=== PATIENT | female | born 2000 | race Caucasian/White ===

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

== ENCOUNTER → 2020-10-06 14:16 | Outpatient (CLI) | payer OTHER, SELFPAY | PROVIDERS: PCP Nurse Practitioner Family; Visit Provider Internal Medicine Adolescent Medicine | DX: Z20.822 Contact with and (suspected) exposure to COVID-19 (principal); U07.1 COVID-19; R05 Cough | CPT/HCPCS: U0003 ==

== ENCOUNTER 2021-05-25 20:02 | Emergency (ER) | payer OTHER, SELFPAY ==
[2021-05-25 20:02] VITALS: BP 141/80; PULSE 103; RESP 18; TEMP 36.9; O2SAT 97; BMI 43.9
[2021-05-25 20:18] VITALS: BP 141/80; PULSE 103; RESP 18; TEMP 36.9; O2SAT 97; BMI 42.5
--- NOTE | 2021-05-25 20:36 | HMH.EDUTC ---
[facility] – [place] Disposition Clinical Impression: Asthma exacerbation Qualifiers: Asthma severity: unspecified severity Asthma persistence: unspecified Qualified Code(s): J45.901 - Unspecified asthma with (acute) exacerbation Disposition: Home, Self-Care Condition on Discharge: Good Instructions: Asthma -- Adult, DI for Asthma -- Adult Additional Instructions: Drink plenty of fluids. Take tylenol or ibuprofen for pain or fever. Take the medications as directed. Follow up with your regular doctor. GO TO THE ER FOR ANY WORSENING SYMPTOMS Prescriptions: Fluticasone Propionate [Flovent Hfa 110mcg Inhaler] 1 puff INHALATION BID 30 Days #1 each Transmission Status: Received by [id number] methylPREDNISolone [Medrol] 4 mg PO DIRECTED 6 Days #21 packet Transmission Status: Received by [id number] Azithromycin [Z-Michael 250mg Tab*] 250 mg PO UD DOSE PK #6 tab Transmission Status: Received by [id number] Referrals: Sammie Escoto APRN [Primary Care Provider] - Forms: Work/School Release Time of Disposition: 20:51 Medical Decision Making - Medical Records Medical records reviewed: No: I reviewed the patient's medical records. - Franki Inquiry Pt receiving controlled substance: No Vital Signs: 05/25/21 20:02 05/25/21 20:18 05/25/21 21:00 Temperature 98.4 F 98.4 F 98.4 F Temperature Source Oral Oral Pulse Rate 103 H Pulse Rate [Right Radial] 103 H 103 H Respiratory Rate 18 18 18 Blood Pressure 141/80 H Blood Pressure [Left Arm] 141/80 H 141/80 H Blood Pressure Mean [Left Arm] 100 100 Blood Pressure Source [Left Arm] Automatic Cuff Blood Pressure Position [Left Arm] Sitting 02 Sat by Pulse Oximetry 97 97 Oxygen Delivery Method Room Air [facility] – [place] HPI - General Stated complaint: possible asthma attack Time Seen by Provider: 05/25/21 20:36 Mode of Arrival: Ambulatory Source of Information: Patient Limitations: No Limitations Description of Symptoms (Recalled from Triage Doc. by RN): pt c/o asthma flare up. she states she was having soa earlier but is feeling better. pt takes ventolin but is unsure if it has been helpig. pt used to take flovent, which worked well. she is out of flovent. HEENT Symptoms (Recalled from RN notes): No Resp Symptoms (Recalled from RN notes): No Skin Symptoms (Recalled from RN notes): No MS Symptoms (Recalled from RN notes): No Functional Status (Recalled from RN notes): na - History of Present Illness Provider Complaint: She states that for the past several days she has had worsening asthma symptoms. She has had more wheezing and a cough that she usually doesn't have. She denies any chest pain. She denies any fever or chills. She denies feeling bad other than her asthma symptoms. She is out of her steroid inhaler. She has been using her ventolin inhaler, but she does not feel like it's working very good for her with out the other inhaler. - Related Data Home Medications Medication Instructions Recorded Confirmed albuterol sulfate 90 mcg/actuation 2 puff INHALATION Q4-6H PRN 09/28/17 aerosol inhaler fluoxetine 10 mg capsule 30 mg PO DAILY cap 09/28/17 fluticasone propionate 110 1 puff INHALATION BID 09/28/17 mcg/actuation HFA aerosol inhaler bupropion HCl 150 mg 24 hr tablet, 150 mg PO DAILY 11/04/20 extended release buspirone 5 mg tablet 5 mg PO TID 11/04/20 etonogestrel 68 mg subdermal SUBDERMAL 11/04/20 implant Previous Rx's Medication Instructions Recorded Azithromycin [Z-Michael 250mg Tab*] 250 mg PO UD DOSE PK #6 tab 05/25/21 Fluticasone Propionate [Flovent 1 puff INHALATION BID 30 Days #1 05/25/21 Hfa 110mcg Inhaler] each methylPREDNISolone [Medrol] 4 mg PO DIRECTED 6 Days #21 05/25/21 packet Allergies Allergy/AdvReac Type Severity Reaction Status Date / Time hydroxyzine [HYDROXYZINE] Allergy Intermediate NA-NAUSEA/V Verified 11/04/20 14:18 OMITING - Worker's Comp Is this a Wor
[2021-05-25 21:00] VITALS: BP 141/80; PULSE 103; RESP 18; TEMP 36.9
== END 2021-05-25 21:01 | disposition home or self-care (01) ==
PROVIDERS: Emergency Provider Nurse Practitioner Family; PCP Nurse Practitioner Family
DX: J45.901 Unspecified asthma with (acute) exacerbation (principal); F33.1 Major depressive disorder, recurrent, moderate
CPT/HCPCS: 99202; C9803; G0463; U0003; U0005

== ENCOUNTER 2022-09-02 14:36 | Emergency (ER) | payer OTHER, SELFPAY ==
--- NOTE | 2022-09-02 14:36 | ECG_ITS ---
APPROVED REPORT Exam: Resting ECG HR:101 bpm ECG Measurements Heart Rate 101 AXES WY 132 P 63 QRSd 92 QRS 56 QT 351 T 28 QTc 409 Conclusion SINUS TACHYCARDIA NONSPECIFIC T-WAVE ABNORMALITY ABNORMAL RHYTHM ECG UNCONFIRMED REPORT Electronically signed by : Srikanth Warren MD 09/02/2022 18:35:22
[2022-09-02 14:38] VITALS: BP 143/83; PULSE 107; RESP 16; TEMP 36.7; O2SAT 96; BMI 45.1
--- NOTE | 2022-09-02 14:48 | XR_ITS ---
FINAL REPORT CLINICAL HISTORY: CHEST PAIN COMPARISON: 11/01/2016 FINDINGS: PA and lateral views of the chest were obtained. The cardiac and mediastinal silhouettes are within normal limits. The lungs are clear. There is no pleural effusion or pneumothorax. No acute osseous abnormality is identified. IMPRESSION: No radiographic evidence of acute cardiac or pulmonary disease. Reviewed, Interpreted and Dictated by Angela Ly MD Transcribed by Earnestine Viera Authenticated and [facility]
--- NOTE | 2022-09-02 14:48 | PC.NURSE ---
DR ROMERO AT BEDSIDE
[2022-09-02 15:11] LABS: Alanine Aminotransferase 29 U/L (12-78); Albumin Level 4.4 g/dl (3.5-5.0); Albumin/Globulin Ratio 1.3 (1.1-1.8); Alkaline Phosphatase 107 U/L (38-126); Aspartate Amino Transferase 35 U/L (14-36); Bilirubin,Total 0.6 mg/dl (0.2-1.3); Blood Urea Nitrogen 15 mg/dl (7-17); Calcium 9.2 mg/dl (8.4-10.2); Carbon Dioxide 26 mmol/L (22.0-30.0); Chloride 110 mmol/L (98-107); Creatinine Clearance Estimated 105 mL/min (50-200); Estimated Glomerular Filt Rate 106 ml/min (>60); GFR (African American) 128 ML/MIN (>60); Globulin 3.4 g/dL (1.3-3.2); Glucose 82 mg/dl (74-100); Sodium 142 mmol/L (136-145); Total Protein,Serum 7.8 g/dl (6.3-8.2)
--- NOTE | 2022-09-02 15:15 | HMH.EDCP ---
Discharge Plan Disposition Patient Disposition: Home, Self-Care Condition: Good Prescriptions Prescriptions: New ibuprofen 400 mg tablet 400 mg PO Q6H PRN (Reason: pain) Qty: 20 0RF omeprazole 20 mg capsule,delayed release(DR/EC) 20 mg PO DAILY Qty: 20 0RF No Action fluoxetine [Prozac] 10 mg capsule 30 mg PO DAILY albuterol sulfate [Ventolin HFA] 90 mcg/actuation HFA aerosol inhaler 2 puff INHALATION Q4-6H PRN fluticasone propionate [Flovent HFA] 110 mcg/actuation HFA aerosol inhaler 1 puff INHALATION BID Nexplanon 68 mg implant SUBDERMAL bupropion HCl 150 mg tablet extended release 24 hr 150 mg PO DAILY buspirone 5 mg tablet 5 mg PO TID fluticasone propionate 120 PUFFS HFA aerosol inhaler 1 puff INHALATION BID 30 Days Qty: 1 2RF azithromycin 250 MG tablet 250 mg PO UD DOSE PK Qty: 6 0RF Rx Instructions: Take two (2) tablets today, then one (1) tablet days #2 thru #5 methylprednisolone 4 MG tablets,dose pack 4 mg PO DIRECTED 6 Days Qty: 21 0RF Referrals Follow up/Referrals: Provider,Referral, MD [Primary Care Provider] - See instructions Activity Restrictions/Add. Instructions Additional Instructions/Restrictions: Avoid exertion. Follow-up with your primary care provider for consideration of outpatient cardiac stress testing. Return for worsening chest pain, shortness of air or other concerns. Clinical Impressions Clinical Impression: Acute costochondritis, GERD with esophagitis Stand Alone Forms Stand Alone Forms: Work/School Release Discharge ED Provider: Marcell Krishnamurthy Chest Pain HPI General Chief Complaint: Chest Pain Stated Complaint: CP Time Seen by Provider: 09/02/22 14:47 Mode of Arrival: Ambulatory Limitations: No Limitations Description of Symptoms (Recalled from ER Triage Doc. by RN): PT REPORTS CHEST PAIN X 2 MONTHS, INCREASED CHEST PRESSURE FOR A FEW WEEKS. PT DENIES SHORTNESS OF BREATH History of Present Illness HPI narrative: Patient presents complaining of 3-week history of intermittent chest discomfort. Presently she describes discomfort as moderate and denies exacerbating or alleviating factors. She denies associated shortness of breath, vomiting or diaphoresis. She denies recent fever or productive cough. She denies a history of heart disease or thromboembolic disease. She presently denies . Related Data Home Medications Medication Instructions Recorded Confirmed albuterol sulfate 90 mcg/actuation 2 puff inhalation Q4-6H PRN 09/28/17 aerosol inhaler (Ventolin HFA) fluoxetine 10 mg capsule (Prozac) 30 mg PO DAILY 09/28/17 fluticasone propionate 110 1 puff inhalation BID 09/28/17 mcg/actuation HFA aerosol inhaler (Flovent HFA) bupropion HCl 150 mg 24 hr tablet, 150 mg PO DAILY 11/04/20 extended release buspirone 5 mg tablet 5 mg PO TID 11/04/20 etonogestrel 68 mg subdermal subdermal 11/04/20 implant (Nexplanon) Previous Rx's Medication Instructions Recorded azithromycin 250 mg tablet 250 mg PO UD DOSE PK #6 tabs 05/25/21 fluticasone propionate 110 1 puff inhalation BID 30 days #1 ea 05/25/21 mcg/actuation HFA aerosol inhaler methylprednisolone 4 mg tablets in 4 mg PO DIRECTED 6 days #21 05/25/21 a dose pack packets ibuprofen 400 mg tablet 400 mg PO Q6H PRN pain #20 tabs 09/02/22 omeprazole 20 mg capsule,delayed 20 mg PO DAILY #20 caps 09/02/22 release Allergies Allergy/AdvReac Type Severity Reaction Status Date / Time hydroxyzine [HYDROXYZINE] Allergy Intermediate NA-NAUSEA/V Verified 11/04/20 14:18 OMITING PFSH PFSH Disclaimer: The information contained in this section may have been updated after the patient was seen, as this information can be updated by other users. Medical History Nexplanon in place Surgical History (Updated 09/02/22 @ 15:26 by Yany Katz RN) History of tonsillectomy Family History (Updated 09/02/22
[2022-09-02 15:16] LABS: D-Dimer 0.38 ug/mL (0.0-0.5)
[2022-09-02 15:25] LABS: HCG Qualitative, Serum Negative (Negative); Troponin I < 0.01 ng/ml (0.00-0.034)
[2022-09-02 15:38] LABS: Basophils # 0.2 K/mm3 (0-0.2); Basophils % 1.5 % (0.1-2.0); Eosinophils # 0.7 K/mm3 (0.0-0.4); Eosinophils % 5.5 % (0.1-12.0); Hematocrit 46.1 % (37.0-47.0); Hemoglobin 15.6 g/dL (12.2-16.2); Lymphocytes # 3.3 K/mm3 (0.7-4.5); Lymphocytes % 25.8 % (10-50); Mean Corpuscular HGB Conc 33.7 g/dL (31.8-35.4); Mean Platelet Volume 7.8 fl (7.4-10.4); Monocytes # 0.7 K/mm3 (0.1-1.0); Monocytes % 5.6 % (1.7-9.3); Neutrophils % 61.7 % (37.0-80.0); Platelet Count 368 K/mm3 (142-424); Red Blood Count 5.36 M/mm3 (4.20-5.40); White Blood Count 12.9 K/mm3 (4.8-10.8)
[2022-09-02 15:50] VITALS: BP 129/82; PULSE 90; RESP 18; TEMP 36.7; O2SAT 98
== END 2022-09-02 15:50 | disposition home or self-care (01) ==
PROVIDERS: Emergency Provider Emergency Medicine
DX: M94.0 Chondrocostal junction syndrome [Tietze] (principal); K21.00 Gastro-esophageal reflux disease with esophagitis, without bleeding; R07.89 Other chest pain; F17.210 Nicotine dependence, cigarettes, uncomplicated; Z90.49 Acquired absence of other specified parts of digestive tract
CPT/HCPCS: 71046; 80053; 84484; 84703; 85025; 85378; 93005; 99285

== ENCOUNTER 2022-11-29 02:18 | Emergency (ER) | payer OTHER, SELFPAY ==
[2022-11-29 02:19] VITALS: BP 141/85; PULSE 108; RESP 19; TEMP 36.8; O2SAT 96; BMI 44.2
[2022-11-29 02:28] VITALS: BP 143/78; PULSE 117; O2SAT 94
[2022-11-29 02:31] VITALS: BP 141/83; PULSE 97; O2SAT 95
[2022-11-29 03:00] LABS: Basophils # 0.1 K/mm3 (0-0.2); Basophils % 0.6 % (0.1-2.0); Eosinophils # 0.4 K/mm3 (0.0-0.4); Eosinophils % 2.6 % (0.1-12.0); Hematocrit 48.4 % (37.0-47.0); Hemoglobin 16.4 g/dL (12.2-16.2); Lymphocytes # 3.5 K/mm3 (0.7-4.5); Lymphocytes % 22.4 % (10-50); Mean Corpuscular HGB Conc 33.9 g/dL (31.8-35.4); Mean Corpuscular Hemoglobin 29.2 pg (27.0-31.2); Mean Corpuscular Volume 86.4 fl (81-99); Mean Platelet Volume 7.6 fl (7.4-10.4); Monocytes # 0.8 K/mm3 (0.1-1.0); Neutrophils # 10.7 K/mm3 (1.8-7.8); Neutrophils % 69.4 % (37.0-80.0); Platelet Count 331 K/mm3 (142-424); Red Blood Count 5.61 M/mm3 (4.20-5.40); Red Cell Distribution Width 12.7 % (11.5-17.5); White Blood Count 15.5 K/mm3 (4.8-10.8)
[2022-11-29 03:02] LABS: Adenovirus F 40/41, stool Not Detected (NotDetected); Astrovirus Not Detected (NotDetected); Campylobacter Not Detected (NotDetected); Clostridium Difficile A/B, PCR Not Detected (NotDetected); Cryptosporidium Not Detected (NotDetected); Cyclospora Cayetanesis Not Detected (NotDetected); Entamoeba histolytica Not Detected (NotDetected); Enteroaggregative E coli Not Detected (NotDetected); Enteropathogenic E coli Not Detected (NotDetected); Enterotoxigenic E coli Not Detected (NotDetected); Giardia lamblia Not Detected (NotDetected); Norovirus Not Detected (NotDetected); Plesimonas Shigalloides, PCR Not Detected (NotDetected); Rotavirus A Not Detected (NotDetected); Salmonella, PCR Not Detected (NotDetected); Sapovirus Not Detected (NotDetected); Shiga-like toxin E coli Not Detected (NotDetected); Shigella Enterovasive E coli Not Detected (NotDetected); Vibrio Cholerae Not Detected (NotDetected); Vibrio, PCR Not Detected (NotDetected); Yersinia Entercolitica, PCR Not Detected (NotDetected)
--- NOTE | 2022-11-29 03:03 | PC.NURSE ---
notified lab that the specimen sent was a stool sample for the diarrhea panel
[2022-11-29 03:08] LABS: Amylase 81 U/L (30-110); MANUAL DIFFERENTIAL MANUAL DIFFERENTIAL (MANUAL DIFF)
[2022-11-29 03:09] LABS: Alanine Aminotransferase 37 U/L (12-78); Albumin Level 4.5 g/dl (3.5-5.0); Albumin/Globulin Ratio 1.3 (1.1-1.8); Alkaline Phosphatase 119 U/L (38-126); Anion Gap 20.6 mEq/L (5-15); Aspartate Amino Transferase 38 U/L (14-36); Bilirubin,Total 0.5 mg/dl (0.2-1.3); Blood Urea Nitrogen 13 mg/dl (7-17); Calcium 9.2 mg/dl (8.4-10.2); Carbon Dioxide 20 mmol/L (22.0-30.0); Chloride 103 mmol/L (98-107); Creatinine Clearance Estimated 122 mL/min (50-200); Estimated Glomerular Filt Rate 125 ml/min (>60); GFR (African American) 151 ML/MIN (>60); Globulin 3.5 g/dL (1.3-3.2); Glucose 99 mg/dl (74-100); Lipase 84 U/L (23-300); Potassium 3.6 mmoL/L (3.5-5.1); Sodium 140 mmol/L (136-145)
[2022-11-29 03:14] LABS: C-Reactive Protein 3.2 mg/L (0-4)
[2022-11-29 03:20] LABS: Eosinophils % 1 % (0-3); Lymphocytes % 30 % (10-50); Monocytes % 3 % (2-9); Neutrophils % 66 % (42-76); Platelet Estimate Normal; Total Cells Counted 100
[2022-11-29 03:21] LABS: RBC Morphology Normal
[2022-11-29 03:24] LABS: Erythrocyte Sedimentation Rate 3 mm/hr (0-20)
--- NOTE | 2022-11-29 03:24 | CT_ITS ---
PROCEDURE INFORMATION: Exam: CT Abdomen And Pelvis With Contrast Exam date and time: 11/29/2022 4:43 AM Age: 22 years old Clinical indication: Nausea; Additional info: Abd pain with nausea a diarrhea TECHNIQUE: Imaging protocol: Computed tomography of the abdomen and pelvis with contrast. Radiation optimization: All CT scans at this facility use at least one of these dose optimization techniques: automated exposure control; mA and/or kV adjustment per patient size (includes targeted exams where dose is matched to clinical indication); or iterative reconstruction. Contrast material: ISOVUE; Contrast volume: 75 ml; Contrast route: IV; REPORTING DATA: Count of CT and Cardiac NM exams in prior 12 months: This patient has received 0 known CTs and 0 known cardiac nuclear medicine studies in the 12 months prior to the current study. COMPARISON: CR XR CHEST 2V 09/02/2022 3:26 PM FINDINGS: Liver: Normal. No mass. Gallbladder and bile ducts: Normal. No calcified stones. No ductal dilation. Pancreas: Normal. No ductal dilation. Spleen: Normal. No splenomegaly. Adrenal glands: Normal. No mass. Kidneys and ureters: Normal. No hydronephrosis. Stomach and bowel: Unremarkable. No obstruction. No mucosal thickening. Appendix: No evidence of appendicitis. Intraperitoneal space: Unremarkable. No free air. No significant fluid collection. Vasculature: Unremarkable. No abdominal aortic aneurysm. Lymph nodes: Unremarkable. No enlarged lymph nodes. Urinary bladder: Unremarkable as visualized. Reproductive: Unremarkable as visualized. Bones/joints: Unremarkable. No acute fracture. Soft tissues: Unremarkable. IMPRESSION: No acute findings.
[2022-11-29 03:25] LABS: Lactic Acid 0.9 mmol/L (0.7-2.1)
[2022-11-29 03:27] LABS: Procalcitonin 0.039 ng/mL (0.0-2.0)
[2022-11-29 03:54] LABS: HCG Qualitative, Serum Negative (Negative)
--- NOTE | 2022-11-29 04:18 | PC.NURSE ---
updated pt on time remaining for diarrhea panel, per Lab it should be complete at [id number]
--- NOTE | 2022-11-29 04:36 | PC.NURSE ---
pt updated on results thus far. She is attempting to give urine sample again.
--- NOTE | 2022-11-29 04:38 | PC.NURSE ---
pt back to room and radiology assistant taking pt to ct scan
[2022-11-29 04:44] LABS: Microscopic, Urine URINE MICROSCOPIC (MICROSCOPIC)
[2022-11-29 04:46] LABS: Appearance,Urine SL CLOUDY (Clear); Blood, Urine 1+ (Negative); Color,Urine YELLOW (Yellow); Glucose,Urine (UA) Negative (Negative); Ketones,Urine Negative (Negative); Leukocyte Esterase,Urine Negative (Negative); Nitrate,Urine Negative (Negative); PH,Urine 5.5 (5.0-8.5); Protein,Urine Negative (Negative); Specific Gravity, Urine >= 1.030 (1.005-1.030); Urobilinogen,Urine 0.2 EU/dl (0.2)
--- NOTE | 2022-11-29 04:55 | HMH.EDNVD ---
Discharge Plan Disposition Patient Disposition: Home, Self-Care Chief Complaint: Nausea/Vomiting/Diarrhea Prescriptions Prescriptions: No Action fluoxetine [Prozac] 10 mg capsule 20 mg PO DAILY Nexplanon 68 mg implant 1 implant SUBDERMAL DIRECTED buspirone 5 mg tablet 5 mg PO TID Referrals Follow up/Referrals: Sammie Escoto APRN [Primary Care Provider] - See instructions Bere Cardenas APRN [Staff Physician] - See instructions Clinical Impressions Clinical Impression: Irritable bowel syndrome (IBS) Instructions Patient Instructions: DI for Diarrhea and Traveler's Diarrhea -- Adult Discharge ED Provider: [facility] (ED)Fahad Nausea/Vomiting/Diarrhea HPI General Chief complaint: Nausea/Vomiting/Diarrhea Stated complaint: Diarrhea X4 days; yellow in color; abd pain Time Seen by Provider: 11/29/22 04:56 Mode of Arrival: Family Vehicle Source of Information: Patient and Medical Record Limitations: No Limitations Description of Symptoms (Recalled from ER Triage Doc. by RN): Pt c/o diarrhea 4-6 days a week for about 6 mn. SHe thinks she has IBD. She is also concerned d/t the diarrhea consistancy changing to yeloow water and causing episodes of incontinence. Denies any abd currently, but she has had episodes of frequent gas pains . She also c/o nausea without vomiting. History of Present Illness HPI Narrative: pt with ongoing diarrhea w/o blood or fever weekly over the last few months - occ constipation - has assoc crampy abd pain - hx of ibs MD complaint: nausea, diarrhea and abdominal pain Onset (ago): week(s) Associated Abdominal Pain: Yes Location of pain: diffuse Severity: moderate Quality: cramping Consistency: intermittent Associated symptoms: denies other symptoms Related Data Home Medications Medication Instructions Recorded Confirmed fluoxetine 10 mg capsule (Prozac) 20 mg PO DAILY Depression 09/28/17 11/29/22 buspirone 5 mg tablet 5 mg PO TID Anxiety 11/04/20 11/29/22 etonogestrel 68 mg subdermal 1 implant subdermal DIRECTED 11/04/20 11/29/22 implant (Nexplanon) control Allergies Allergy/AdvReac Type Severity Reaction Status Date / Time hydroxyzine [HYDROXYZINE] Allergy Intermediate NA-NAUSEA/V Verified 11/04/20 14:18 OMITING PFSH PFSH Disclaimer: The information contained in this section may have been updated after the patient was seen, as this information can be updated by other users. Medical History Anxiety Depression Nexplanon in place Surgical History (Updated 09/02/22 @ 15:26 by Yany Katz RN) History of tonsillectomy Family History (Updated 09/02/22 @ 15:26 by Yany Katz RN) Other No significant family history Social History (Updated 09/02/22 @ 15: by Yany Katz RN) Smoking Status: Current every day smoker alcohol intake: never substance use type: denies use current occupational status: employed and unemployed Travel in the last 8 weeks: None ROS Obtained: Yes All systems reviewed & no additional complaints except as documented Physical Exam General General appearance: alert and obese Head Head exam: normocephalic Eye Eye exam: Present PERRL and EOMI; Absent scleral icterus ENT ENT exam: Present mucous membranes moist Neck Neck exam: Present trachea midline Respiratory Respiratory exam: Present normal lung sounds bilaterally; Absent respiratory distress Cardiovascular Cardiovascular exam: Present regular rate Abdominal Exam Abdominal exam: Present soft and tenderness; Absent guarding or rebound Abdominal tenderness: Present diffuse and moderate Extremities Exam Extremities exam: Present full ROM Neurological Exam Neurological exam: Present alert, oriented X3 and CN II-XII intact; Absent motor sensory deficit Psychiatric Psychiatric exam: Present normal affect Skin Skin exam: Absent rash Medical Decision Making Medical Records Medical records reviewed: Yes I reviewed the
[2022-11-29 05:01] LABS: Bacteria,Urine 2+ /lpf; Bilirubin,Urine 1+ (Negative); Hyaline Casts,Urine Occasional #/lpf (0); Mucus,Urine 2+ /lpf; RBC,Urine Occasional #/hpf (0-3)
[2022-11-29 05:32] VITALS: BP 106/63; PULSE 88; O2SAT 100
[2022-11-29 06:00] VITALS: BP 116/75; PULSE 94; O2SAT 99
[2022-11-29 06:06] VITALS: BP 116/75; PULSE 79; RESP 18; TEMP 36.7; O2SAT 98
== END 2022-11-29 06:28 | disposition home or self-care (01) ==
PROVIDERS: Emergency Provider Emergency Medicine; PCP Nurse Practitioner Family
DX: K58.0 Irritable bowel syndrome with diarrhea (principal); R11.2 Nausea with vomiting, unspecified; F17.200 Nicotine dependence, unspecified, uncomplicated
CPT/HCPCS: 74177; 80053; 81001; 82150; 83605; 83690; 84145; 84703; 85007; 85025; 85651; 86140; 87086; 87507; 96361; 96374; 96375; 99284; 99285; J2405; Q9967

== ENCOUNTER 2025-05-05 00:20 | Emergency (ER) | payer OTHER, SELFPAY ==
--- NOTE | 2025-05-05 00:25 | XR_ITS ---
PROCEDURE INFORMATION: Exam: XR Chest Exam date and time: 05/05/2025 1:05 AM Age: 24 years old Clinical indication: Wheezing; Additional info: Wheezing cough flu+ TECHNIQUE: Imaging protocol: Radiologic exam of the chest. Views: 2 views. COMPARISON: CR XR CHEST 2V 09/02/2022 3:26 PM FINDINGS: Lungs: The lungs appear clear. No focal areas of consolidation. Pleural spaces: No pleural effusions. Negative for pneumothorax. Heart/Mediastinum: Cardiac silhouette and pulmonary vasculature are within range of normal. Bones/joints: There is no evidence of acute fracture. IMPRESSION: Negative for an acute cardiopulmonary abnormality.
--- OUTSIDE RECORDS SUMMARY | 2025-05-05 00:26 | XMS_ITS | Clinical Summary ---
Author Organization [facility] yste Address [address] [place] [address] Care Team Providers Care Acls Nurse Name Role Phone Unavailable Primary Care Provider Unavailabl e Social History Tobacco Use Types Packs/Day Years Used Date Smoking Tobacco: Never Assessed Abuse Screen Answer Date Recorded Unsafe at Home or Work/School Not on file Feels Threatened by Someone? Not on file 04/2023 Does Anyone Keep You from Co ntacting Others or Doint Things Outside the Home? Not on file 04/27/2023 Physical Sign of Abuse Present Not on file 1 Housing Stability Answer Date Recorded Current Living Arrangements Not on file 04/18 Potentially Unsafe Housing Conditions Not on nathaly e 04/27/2023 Family and Community Support Answer Oseas e Recorded Help with Day-to-Day Activities Not on file 04/27/2023 Lonely or Isolated Not on file 04/27/2023 Employment Answer Date Recorded Do you want help finding or keeping work or a ryanne b? Not on file 04/27/2023 Disabilities Answer Date Recorded Concentrating, Remembering, or Making Decisions Difficulty Not on file 04/27/2023 Doing Errands Independently Difficulty Not on fi le 04/27/2023 Education Answer Date Recorded Help with school or training? Not on file Preferred Language Not on file 04/27/2023 Comments Unknown Sex and Gender Information Value Date Recorded Sex Assigned at Not on file Legal Sex Female 1:49 PM EDT Gender Identity Not on file Sexual Orientation Not on file Plan of Treatment Health Maintenance Due Date Last Done Comments ANNUAL PHYSICAL 2000 Annual Gynecologic Pelvic an d Breast Exam 2000 HEPATITIS C SCREENING 2000 HPV VACCINES (1 - 3-dose series) 10/10/2015 TDAP/TD VACCINES (1 - Tdap) 10/10/2019 INFLUENZA VACCINE 02/16/2025 MENINGOCOCCAL B VACCINE Aged Out No l onger eligible based on patient's age to complete this topic Pneumococcal Vaccine 0-49 Aged Out No longer eligible based on patient's age to complete this topic
[2025-05-05 00:30] VITALS: BP 145/78; PULSE 84; RESP 18; TEMP 37.1; O2SAT 94; BMI 34.3
--- NOTE | 2025-05-05 00:31 | ED_ITS ---
Discharge Plan Disposition Patient Disposition: Home, Self-Care Condition: Good Prescriptions Prescriptions: New prednisone 50 mg tablet 50 mg PO DAILY 4 Days Qty: 4 0RF No Action quetiapine 25 mg tablet 25 mg PO DAILY fluoxetine 20 mg tablet 30 mg PO DAILY Referrals Follow up/Referrals: Sammie Escoto APRN [Primary Care Provider, Medical] - See instructions Activity Restrictions/Add. Instructions Additional Instructions/Restrictions: You were evaluated in the ER and are believed to be appropriate for discharge at this time. Use the provided albuterol inhaler 2 puffs every 6 hours if needed for shortness of breath or wheezing. Continue any home medications as previously prescribed. Take the prescribed steroids as directed starting tomorrow, 05/06/2025. Drink plenty of fluids to stay hydrated. Follow-up with your primary care doctor for reevaluation in 2 to 3 days. Return to the ER with any new, worsening, or otherwise concerning symptoms. Clinical Impressions Clinical Impression: Asthma exacerbation, Influenza Instructions Patient Instructions: Influenza, DI for Asthma in Adults Print Language Print Language: Citizen Of [place] Discharge ED Provider: Ruben Real General Adult HPI General Chief complaint: Shortness of Breath/Dyspnea Stated complaint: flu, asthma, wheezing,soa Time Seen by Provider: 05/05/25 00:22 History of Present Illness HPI narrative: 24-year-old female with history of asthma presents to the ER known to be flu B+ with concerns of wheezing. She states she does not have any inhalers at home and her wheezing is getting worse. She states she feels short of breath especially after coughing fits. She is not having any chest pain or difficulty breathing at rest but states her wheezing is worse. She denies having any known fevers at home, she does have body aches, congestion, cough, and mild sore throat. No cardiac history. She is not a diabetic. She has a history of GERD, IBS, anxiety. She denies any headache, numbness, tingling, or weakness. No nausea or vomiting. No other complaints or concerns at this time but she is hoping to get breathing treatments. Related Data Home Medications ?Medication ?Instructions ?Recorded ?Confirmed fluoxetine 20 mg tablet 30 mg PO DAILY 06/15/2301/08 quetiapine 25 mg tablet 25 mg PO DAILY 06/15/2301/08 Previous Rx's ?Medication ?Instructions ?Recorded prednisone 50 mg tablet 50 mg PO DAILY 4 days #4 tab s 05/05/25 Allergies Allergy/AdvReac Type Severity Reaction Status Date / Time hydroxyzine (HYDROXYZINE) Allergy Intermediate NA-NAUSEA/V Verified 06/23/23 11:18 [facility] Disclaimer: The information contained in this section may have been updated after the patient was seen, as this information can be updated by other users. Medical History Anxiety Depression Surgical History History of tonsillectomy Family History Other No significant family history Social History Smoking Status: Never smoker alcohol intake: never substance use type: marijuana current occupational status: employed and unemployed Travel in the last 8 weeks?: None Have you lived/traveled outside [place] in past 30 days?: No Contact w/someone who lives/traveled outside US past 30 days?: No Exposure to someone with infectious disease in past 14 days?: Yes Do you have a fever (greater than 100.4 F or 38 C)?: No Have you tested positive for COVID-19?: No Exposed to someone with COVID-19 in past 14 days?: No Do you have a sore throat?: No Do you have a cough?: No Do you have any weakness?: No Do you have any diarrhea?: No Are you experiencing any unusual bleeding?: No Do you have any muscle aches/pain?: No Do you have any abdominal pain?: No Are you experiencing loss of taste or smell?: No Other Medical History Have you received the Flu Vaccine for this season: No Have you received the Pneumonia Vaccine: No ROS Obtained: Yes Systems reviewed as appropriate & no additional complaints except as documented Per HPI Physical Exam General General appearance: alert and in no apparent distress Head Head exam: atraumatic and normocephalic Eye Eye exam: Present PERRL and EOMI ENT ENT exam: Present mucous membranes moist and other (Mildly erythematous tonsils but no tonsillomegaly or exudate) Neck Neck exam: Present normal inspection and full ROM Chest Chest inspection: Present symmetric chest wall rise Respiratory Respiratory exam: Present wheezes (Inspiratory and expiratory) and other (92 to 95% on room air); Absent respiratory distress, stridor, accessory muscle use or prolonged expiratory phase Cardiovascular Cardiovascular exam: Present normal rhythm and tachycardia Abdominal Exam Abdominal exam: Present soft; Absent distention or tenderness Extremities Exam Extremities exam: Present full ROM and normal capillary refill; Absent edema or joint swelling Neurological Exam Neurological exam: Present alert and oriented X3; Absent motor sensory deficit Psychiatric Psychiatric exam: Present normal affect and normal mood Skin Skin exam: Present warm and dry Medical Decision Making Medical Records Medical records reviewed: Yes I reviewed the patient's medical records. Screening: Per USPSTF and CDC recommendations, given the prevalence of disease in our region, it is our hospital?s policy to screen for HIV and viral Hepatitis for all patients aged 18 and over and those with ongoing risk factors. Franki Inquiry Pt receiving controlled substance: No Vital Signs: 05/05/25 00:30 05/05/25 00:59 05/05/25 00:59 Temperature 98.7 F 98.7 F Temperature Source Oral Pulse Rate 74 Pulse Rate [Right] 84 Respiratory Rate 18 18 Blood Pressure 124/78 Blood Pressure [Right Arm] 145/78 H Blood Pressure Mean [Right Arm] 100 02 Sat by Pulse Oximetry 94 L 95 95 Oxygen Delivery Method Room Air Room Air Room Air 05/05/25 01:41 Temperature 98.8 F Temperature Source Pulse Rate 74 Pulse Rate [Right] Respiratory Rate 18 Blood Pressure 134/78 Blood Pressure [Right Arm] Blood Pressure Mean [Right Arm] 02 Sat by Pulse Oximetry Oxygen Delivery Method Room Air Lab Data Lab Results 05/05/25 00:46: WBC 14.0 H, RBC 5.10, Hgb 15.5, Hct 43.8, MCV 85.9, MCH 30.4, MCHC 35.4, RDW 11.9, Plt Count 233, MPV 9.8, Neut % (Auto) 71.6, Lymph % (Auto) 13.4, Morrison % (Auto) 8.4, Eos % (Auto) 5.7, Baso % (Auto) 0.5, Neut # (Auto) 10.0 H, Lymph # (Auto) 1.9, Morrison # (Auto) 1.2 H, Eos # (Auto) 0.8 H, Baso # (Auto) 0.1, VBG pH 7.39, VBG pCO2 40.0, VBG pO2 38.6, VBG HCO3 23.6, VBG Total CO2 24.8, VBG O2 Saturation 75.4 H, VBG Base Excess -1.4, VBG Lactic Acid 1.3, Sodium 139, Potassium 3.6, Chloride 104, Carbon Dioxide 22, Anion Gap 16.6 H, BUN 9, Creatinine 0.60, Estimated Creat Clear 207, Estimated GFR 123, Est GFR ( Amer) 149, Glucose 93, Calcium 9.4, Total Bilirubin 0.6, AST 19, ALT 14, Alkaline Phosphatase 109, Total Protein 7.3, Albumin 4.3, Globulin 3.0, Albumin/Globulin Ratio 1.4, Serum HCG, Qual Negative 05/05/25 00:46 05/05/25 00:46 Orders (Tests/Meds): ED MEDICATIONS Discontinued Medications Generic Name Dose Route Start Last Admin Trade Name Freq PRN Reason Stop Dose Admin Albuterol Sulfate 2 puff 05/05/25 01:38 Albuterol-Hfa 90mcg/Puff Inhaler 8gm 05/05/25 01:39 ONCE ONE Albuterol/Ipratropium 9 ml 05/05/25 00:25 05/05/25 00:52 Ipratropium/Albuterol 3 Ml Neb 05/05/25 00:26 9 ml ONCE ONE Administration Lactated Ringer's 1,000 mls @ 999 mls/hr 05/05/25 00:36 05/05/25 00:53 Lactated Ringer's 1000 Ml Bag IV 05/05/25 01:36 999 mls/hr .Q1H1M ONE Administration Miscellaneous 1 unit 05/05/25 01:38 Aerochamber/Optihaler MC 05/05/25 01:39 ONCE ONE Prednisone 60 mg 05/05/25 00:25 05/05/25 00:53 Prednisone 20mg Tab PO 05/05/25 00:26 60 mg ONCE ONE Administration ORDERS Category Date Time Status CXR 2 view (NOT portable) [XR chest 2V] Stat Exams 05/05/25 00:25 Taken CBC w/Auto Diff [Complete Blood Count Auto Diff] Stat Lab 05/05/25 00:46 Completed CMP [Comprehensive Metabolic Panel] Stat Lab 05/05/25 00:46 Completed HCG Qualitative, Serum Stat Lab 05/05/25 00:46 Completed VBG [Venous Blood Gas] Stat RT 05/05/25 00:46 Completed Medical Decision Narrative: In summary, this 24-year-old female with comorbidities described in the HPI who is known to be positive for influenza B with symptoms for the last 3 days presents to the emergency department today with cough and wheezing. On initial evaluation patient is mildly tachycardic but otherwise hemodynamically stable, afebrile, saturating in the low 90s on room air with inspiratory and expiratory wheezing but no respiratory distress. Differential diagnosis includes but is not limited to asthma exacerbation, viral syndrome, I considered the possibility of pneumonia but do not appreciate specific lobar adventitious sounds, I considered cardiac pathology such as ACS but have low suspicion for this since patient has no chest pain or pressure, no cardiac history, and has obvious wheezing in the setting of asthma and active viral syndrome. Patient reports she was prescribed Tamiflu but immediately threw it up and has not taken it since that time. She would like IV fluids for rehydration. Based on these concerns, I ordered hematologic and serum labs to check electrolytes and white count, also ordered chest x-ray to rule out acute intrathoracic pathology such as lobar infiltrate. ECG personally interpreted demonstrates sinus tachycardia, rate 103, normal axis, normal [place] and QTc, no STEMI. Patient received DuoNebs, prednisone, IV fluids for treatment. Labs personally reviewed demonstrate leukocytosis WBC 14.0 which is nonspecific at this time but consistent with the patient having influenza as is her elevated monocytes. No anemia, normal platelets, VBG normal pH, normal pCO2, VBG lactic normal at 1.3, CMP nonactionable, patient has mildly increased anion gap which could be related to slight dehydration, IV fluids are being administered. hCG negative. XR personally interpreted demonstrates no pneumothorax or lobar infiltrate, see radiology read for final interpretation. On reassessment patient has had significant improvement of symptoms, she is resting much more comfortably. She remains tachycardic but she has also received significant beta agonists which could be contributing. She feels comfortable going home which I believe is reasonable at this time. Albuterol MDI provided to her in the ER to take home and she was given instructions on use of this at home. I also provided prescription for prednisone for continued management. Patient was given instructions on symptomatic management, follow up instructions, and return precautions for the emergency department. Patient indicated understanding and was discharged in stable condition.. Critical Care Critical Care Time Critical Care Time: No
--- NOTE | 2025-05-05 00:32 | ECG_ITS ---
APPROVED REPORT Exam: Resting ECG HR:103 bpm ECG Measurements Heart Rate 103 AXES WV 164 P 67 QRSd 90 QRS 53 QT 331 T 9 QTc 391 Conclusion SINUS TACHYCARDIA NONSPECIFIC T-WAVE ABNORMALITY No STEMI Electronically signed by : GRACY DOMINGUEZ, 05/05/2025 06:58:28
[2025-05-05] MEDS: IPRATROPIUM/ALBUTEROL 3 ML NEB 9 ML IH (00:52)
[2025-05-05] MEDS: LACTATED RINGERS 1000ML 1,000 ML 999 ML IV (00:53)
[2025-05-05 00:55] LABS: Hematocrit 43.8 % (37.0-47.0); Hemoglobin 15.5 g/dL (12.2-16.2); Immature Granulocytes % 0.4 %; Mean Corpuscular HGB Conc 35.4 g/dL (31.8-35.4); Mean Corpuscular Hemoglobin 30.4 pg (27.0-31.2); Mean Corpuscular Volume 85.9 fl (81-99); Nucleated Red Blood Cells % 0 %; Platelet Count 233 K/mm3 (142-424); Red Blood Count 5.10 M/mm3 (4.20-5.40); Red Cell Distribution Width-SD 37.7 fL; White Blood Count 14.0 K/mm3 (4.8-10.8)
[2025-05-05 00:59] VITALS: BP 124/78; PULSE 74; RESP 18; TEMP 37.1; O2SAT 95
[2025-05-05 01:00] LABS: Lactate Venous 1.3 mmol/L (0.4-2.0); VBG HCO3 23.6 mmol/L (23-30); VBG PCO2 40.0 mmol/L (35-51); VBG PH 7.39 mmol/L (7.31-7.41); VBG PO2 38.6 mmol/L (28-40)
[2025-05-05 01:04] LABS: Alanine Aminotransferase 14 U/L (12-78); Albumin Level 4.3 g/dl (3.5-5.0); Albumin/Globulin Ratio 1.4 (1.1-1.8); Alkaline Phosphatase 109 U/L (38-126); Anion Gap 16.6 mEq/L (5-15); Aspartate Amino Transferase 19 U/L (14-36); Bilirubin,Total 0.6 mg/dl (0.2-1.3); Blood Urea Nitrogen 9 mg/dl (7-17); Calcium 9.4 mg/dl (8.4-10.2); Carbon Dioxide 22 mmol/L (22.0-30.0); Chloride 104 mmol/L (98-107); Creatinine Clearance Estimated 207 mL/min (50-200); Creatinine,Serum 0.60 mg/dl (0.52-1.04); Estimated Glomerular Filt Rate 123 ml/min (>60); GFR (African American) 149 ML/MIN (>60); Globulin 3.0 g/dL (1.3-3.2); Glucose 93 mg/dl (74-100); Potassium 3.6 mmoL/L (3.5-5.1); Sodium 139 mmol/L (136-145); Total Protein,Serum 7.3 g/dl (6.3-8.2)
[2025-05-05 01:09] LABS: HCG Qualitative, Serum Negative (Negative)
[2025-05-05 01:41] VITALS: BP 134/78; PULSE 74; RESP 18; TEMP 37.1; O2SAT 95
[2025-05-05] MEDS: ALBUTEROL-HFA 90MCG/PUFF INHALER 8GM 2 PUFF IH (01:49)
[2025-05-05] MEDS: AEROCHAMBER/OPTIHALER 1 UNIT MC (01:50)
== END 2025-05-05 02:01 | disposition home or self-care (01) ==
PROVIDERS: Emergency Provider Emergency Medicine; PCP Nurse Practitioner Family
DX: J45.901 Unspecified asthma with (acute) exacerbation (principal); J11.1 Influenza due to unidentified influenza virus with other respiratory manifestations; K21.00 Gastro-esophageal reflux disease with esophagitis, without bleeding
CPT/HCPCS: 71046; 80053; 82803; 84703; 85025; 93005; 96365; 99285; J7120

== ENCOUNTER 2025-07-18 17:38 | Outpatient (CLI) | payer OTHER, SELFPAY ==
--- OUTSIDE RECORDS SUMMARY | 2025-07-18 17:42 | XMS_ITS | Clinical Summary ---
Author Organization [facility] yste Address [address] [place] [address] Care Team Providers Care Supervisor [employer] Name Role Phone Unavailable Primary Care Provider [...]
--- NOTE | 2025-07-18 17:46 | XR_ITS ---
PROCEDURE INFORMATION: Exam: XR Right Foot Exam date and time: 07/18/2025 5:37 PM Age: 24 years old Clinical indication: Pain; Ankle and foot; Right; Additional info: Pain in foot/ankle TECHNIQUE: Imaging protocol: Radiologic exam of the right foot. Views: 3 or more views. COMPARISON: CR XR FOOT RT MIN 3V 07/18/2025 5:37 PM FINDINGS: Bones/joints: Hammertoe deformities 2nd through 5th digits. Soft tissues: Normal. IMPRESSION: 1. No evidence for acute fracture. 2. Hammertoe deformities 2nd through 5th digits.
--- NOTE | 2025-07-18 17:46 | XR_ITS ---
PROCEDURE INFORMATION: Exam: XR Right Ankle Exam date and time: 07/18/2025 5:40 PM Age: 24 years old Clinical indication: Pain; Ankle and foot; Right TECHNIQUE: Imaging protocol: Radiologic exam of the right ankle. Views: 3 or more views. COMPARISON: CR Foot R 07/18/2025 5:37 PM FINDINGS: Bones/joints: Normal. Soft tissues: Normal. IMPRESSION: No acute findings.
== END 2025-07-18 23:59 | disposition home or self-care (01) ==
LOC: RAD 17:41
PROVIDERS: PCP Nurse Practitioner Family; Visit Provider Nurse Practitioner
DX: M25.571 Pain in right ankle and joints of right foot (principal); M20.41 Other hammer toe(s) (acquired), right foot
CPT/HCPCS: 73610; 73630